=== PATIENT | female | born 1990 | race Caucasian/White ===

== ENCOUNTER 2016-04-03 01:07 | Emergency (ER) | payer MEDICAID, OTHER ==
[~2016-04-03] VITALS: Ht 162.6 cm; Wt 107.0 kg
[2016-04-03 01:15] VITALS: BP 118/84; PULSE 95; RESP 18; TEMP 98; O2SAT 98
--- NOTE | 2016-04-03 01:18 | NUR ---
Placed in room 08 . Placed on woodworking shop hand, blood pressure machine and pulse oximeter. To gown for exam. Side rails up. Report given to TIFFANIE Nava.
--- NOTE | 2016-04-03 01:20 | NUR ---
Patient to ER C/O generalized rash since last evening. Patient states she is allergic to mashrooms and just returned from a restaurant. Indurated, red, pruritus regenralized rash, with areas of concentration on chest, back, abdomen, upper arms, thighs. AAOx4, unlabored breathing, no signs of acute distress.
--- NOTE | 2016-04-03 01:20 | NUR ---
ER at bedside examining patient.
[2016-04-03] MEDS ORDERED: NACL 0.9% 1,000 ML IV ONE (01:25)
[2016-04-03] MEDS ORDERED: DIPHENHYDRAMINE INJ 50 MG/ML VIAL IVP ONE (01:30)
[2016-04-03] MEDS ORDERED: FAMOTIDINE PF 20 MG/2 ML VIAL IVP ONE (01:30)
[2016-04-03] MEDS ORDERED: DEXAMETHASONE SOD PHOSPHATE 10 MG/ML VIAL IVP ONE (01:30)
--- NOTE | 2016-04-03 01:35 | NUR ---
# 20 gauge angiocath placed to right hand. Use of asceptic technique. Opsite placed over site. Blood return noted. Blood for lab drawn from site. Flushed with 10 cc of normal saline. No evidence of infiltration noted. Patient tolerated well.
[2016-04-03 01:40] LABS: BILIRUBIN,URINE NEGATIVE (NEGATIVE); BLOOD, URINE NEGATIVE (NEGATIVE); CLARITY/URINE HAZY (CLEAR); COLOR,URINE YELLOW (YELLOW); GLUCOSE,URINE NEGATIVE (NEGATIVE); KETONES,URINE NEGATIVE (NEGATIVE); LEUKOCYTE ESTERASE ,URINE 1+ (NEGATIVE); NITRITE, URINE NEGATIVE (NEGATIVE); PROTEIN URINE NEGATIVE (NEGATIVE); UROBILINOGEN,URINE 0.2 (0.2-1.0)
[2016-04-03 01:46] LABS: BASOPHILS # (AUTO) 0.1 K/uL (0.0-0.2); BASOPHILS % (AUTO) 0.6 % (0.0-2.0); EOSINOPHILS # (AUTO) 0.1 K/uL (0.0-0.4); EOSINOPHILS % (AUTO) 0.8 % (0.0-4.0); HEMATOCRIT 42.3 % (36-48); LYMPHOCYTES # (AUTO) 4.2 K/uL (1.0-5.5); MEAN CORPUSCULAR HEMOGLOBIN 27 pg (27-31); MEAN CORPUSCULAR HGB CONC 33 % (32-36); MEAN CORPUSCULAR VOLUME 82 fL (79.0-98.0); MONOCYTES # (AUTO) 0.6 K/uL (0.0-1.0); MONOCYTES % (AUTO) 5.7 % (1.7-9.3); NEUTROPHILS # (AUTO) 5.9 K/uL (1.8-7.7); NEUTROPHILS % (AUTO) 53.9 % (40.0-70.0); PLATELET COUNT (AUTO) 332 K/uL (130-430); RED BLOOD CELL COUNT(AUTO) 5.17 MIL/uL (4.2-6.2); RED CELL DISTRIBUTION WIDTH 13.2 % (9.0-15.0); WHITE BLOOD COUNT (AUTO) 10.9 K/uL (4.8-10.8)
[2016-04-03 01:49] LABS: BACTERIA,URINE MODERATE /HPF (None Seen); MUCUS,URINE 1+ /LPF (None Seen); RBC,URINE 0-3 /HPF (0-3)
[2016-04-03 01:55] LABS: CALCIUM 9.2 mg/dL (8.4-11.0); CREATININE 0.88 mg/dL (0.55-1.30); POTASSIUM 3.7 mmol/L (3.5-5.1)
[2016-04-03 02:00] LABS: ALBUMIN 3.5 g/dL (3.4-4.8); TOTAL BILIRUBIN 0.3 mg/dL (0.0-1.0); TOTAL PROTEIN, SERUM 7.4 g/dL (6.4-8.3)
--- NOTE | 2016-04-03 02:19 | NUR ---
Patient states that she feels much better. Denies itching. Redustion in reddness. No induration noted. ER MD Sy aware.
[2016-04-03 02:39] VITALS: BP 107/66; PULSE 69; RESP 16; TEMP 98; O2SAT 99
--- NOTE | 2016-04-03 02:39 | NUR ---
Patient given written and verbal discharge instructions and verbalizes understanding. ER MD Sy discussed with patient the results and treatment provided. Patient in stable condition. ID arm band removed. IV catheter removed intact and dressing applied, no active bleeding. Rx of tylenol, benadryl, pepcid, prednisone given. Patient educated on pain management and to follow up with PMD. Pain Scale 0/10. Opportunity for questions provided and answered.
== END 2016-04-03 02:39 | disposition home or self-care (01) ==
LOC: SED 01:07
DX: L50.9 Urticaria, unspecified (principal); T78.1XXA Other adverse food reactions, not elsewhere classified, initial encounter; X58.XXXA Exposure to other specified factors, initial encounter
CPT/HCPCS: 36415; 80053; 81000; 81025; 85025; 87086; 96361; 96374; 96375; 99284; J1100; J1200; J3490; J7030